=== PATIENT | male | born 2000 | race Caucasian/White ===

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

== ENCOUNTER 2018-03-11 22:15 | Emergency (ER) | payer BC ==
[~2018-03-11] VITALS: Ht 182.9 cm; Wt 71.2 kg
[~2018-03-11 22:15] MED LIST changes: -ALBU18002 INH; +ALBUAER INH; -OXYC-57 PO
[2018-03-11 22:18] VITALS: TEMP 36.6; Ht 182.9 cm; Wt 71.2 kg
[2018-03-11] MEDS ORDERED: ALBUT/IPRATROP 3MG/0.5MG NEB 3 ML VIAL ONE (22:26)
[2018-03-11] MEDS ORDERED: ALBUT/IPRATROP 3MG/0.5MG NEB 3 ML VIAL INH STA (23:23)
[2018-03-11] MEDS ORDERED: DEXAMETHASONE SOD INJ 10 MG/ML VIAL ONE (23:26)
[2018-03-11] MEDS ORDERED: DEXAMETHASONE **PF** INJ 10 MG/ML VIAL IV ONE (23:30)
[2018-03-11 23:51] LABS: BASO % 0.6 %; BASO ABS # 0.07 K/uL (0-0.2); EOS % 8.5 %; EOS ABS # 1.07 K/uL (0-0.5); HEMATOCRIT 45.4 % (42-52); HEMOGLOBIN 16.2 g/dL (14.0-18.0); IG# 0.03 K/uL (0.00-0.02); LYMPH % 17.6 %; LYMPH ABS # 2.22 K/uL (1.2-3.4); MEAN CELL VOLUME 87.3 fL (80-100); MEAN CORPUSCULAR HEMOGLOBIN 31.2 pg (25-34); MEAN CORPUSCULAR HGB CONC 35.7 g/dl (32-36); MEAN PLATELET VOLUME 10.1 fL (7.4-10.4); MONO % 9.9 %; MONO ABS # 1.25 K/uL (0.11-0.59); NEUT % 63.2 %; NEUT ABS # 7.96 K/uL (1.4-6.5); PLATELET COUNT 265 K/uL (130-400); RED CELL DISTRIBUTION WIDTH CV 12.2 % (11.5-14.5); RED CELL DISTRIBUTION WIDTH SD 38.8 fL (36.4-46.3)
[2018-03-12 00:14] LABS: ALBUMIN 4.3 gm/dl (3.4-5.0); CALCIUM 9.5 mg/dl (8.5-10.1); CREATININE 1.15 mg/dl (0.60-1.40); POTASSIUM 4.1 mmol/L (3.5-5.1); TOTAL PROTEIN 7.8 gm/dl (6.4-8.2)
[2018-03-12] MEDS ORDERED: ALBUT/IPRATROP 3MG/0.5MG NEB 3 ML VIAL INH STA (00:23)
[2018-03-12] MEDS ORDERED: SODIUM CHLORIDE 0.9% 1000ML 1,000 ML IV STA (00:23)
[2018-03-12 01:52] VITALS: O2SAT 92
[2018-03-12] MEDS ORDERED: ALBUTEROL HFA 8 GM INHALER INH STA (01:57)
[2018-03-12] MEDS ORDERED: PRED50TA PO (01:58)
[2018-03-12 02:11] VITALS: BP 125/72; PULSE 100; O2SAT 92
--- NOTE | 2018-03-12 05:05 | DIAGNOSTIC IMAGING REPORT ---
CHEST ONE VIEW PORTABLE CLINICAL HISTORY: 17 years-old Male presenting with SOB . TECHNIQUE: Portable upright AP view of the chest was obtained. COMPARISON: 10/03/2016. FINDINGS: Cardiomediastinal silhouette normal. Lungs and pleural spaces clear. Osseous structures normal. Upper abdomen normal. IMPRESSION: 1. No acute cardiopulmonary disease. Electronically signed by: Orlin Corea M.D. 03/12/2018 5:04 AM Dictated Date/Time: 03/12/2018 5:03 AM
--- NOTE | 2018-03-12 05:58 | EMERGENCY ROOM VISIT NOTE ---
History First contact with patient: 23:07 Chief Complaint: SHORTNESS OF BREATH Stated Complaint: CAN'T BREATHE,ASTHMA ATTACK Nursing Triage Summary: HX of asthma, PT also has seasonal allergies. PT states past few days breathing has been getting worse and inhalers not working as well. PT upon arrival RA sat of 88. placed on supplemental oxygen, PT then given duo neb. History of Present Illness The patient is a 17 year old male who presents to the Emergency Room with complaints of cough and wheezing for the past day. Patient's orders were already ordered prior to my evaluation per protocol. Patient states he is out of his inhaler. No recent asthma flare. No recent antibiotics. No recent steroids. He has never been intubated or hospitalized for his asthma. Patient denies chest pain, abdominal pain, fever, chills, productive cough, leg pain or swelling. He is speaking in full sentences. Review of Systems An 10 system review of systems was completed with positives and pertinent negatives listed in the HPI. Past Medical/Surgical History Medical Problems: (1) Asthma Social History Smoking Status: Never Smoker Alcohol Use: none Drug Use: none Marital Status: single Housing Status: lives with family Occupation Status: [employer] student Current/Historical Medications Scheduled Prednisone (Prednisone), 50 MG PO DAILY Scheduled PRN Albuterol Sulfate (Proventil Hfa), 2 PUFFS INH UD PRN for SOB/Wheezing Loratadine (Claritin), 10 MG PO QAM PRN for Allergy Symptoms Physical Exam Vital Signs Date Time Temp Pulse Resp B/P (MAP) Pulse Ox O2 Delivery O2 Flow Rate FiO2 03/12/18 02:11 100 18 125/72 92 03/12/18 01:52 92 Room Air 03/12/18 01:00 113 18 121/72 92 Room Air 03/11/18 23:48 105 18 125/81 95 Nasal Cannula 2.0 03/11/18 23:15 95 Nasal Cannula 2.0 03/11/18 23:14 95 Nasal Cannula 2.0 03/11/18 22:43 112 03/11/18 22:24 94 Nasal Cannula 3.0 03/11/18 22:23 88 Room Air 03/11/18 22:18 36.6 127 24 123/76 91 Room Air Physical Exam PHYSICAL EXAM: Vital Signs: Reviewed Nurse's notes. Oxygen saturation was 91% on room air. GENERAL: Pleasant male speaking full sentences, Alert, oriented and coherent. The patient is able to speak in complete sentences. NECK: Supple , non-tender. CHEST: Symmetrical expansion. no retractions no accessory muscle use. HEART: Mildly tachycardic rate and normal heart sounds, no murmur, gallop or rub. LUNGS: Breath sounds equal but significantly diminished in intensity on both sides. Bilateral wheezes heard but no rales or pleuritic rub. SKIN: The skin was without rashes, erythema, edema, or bruising. There is no tenting of the skin. Capillary reflex less than 2 seconds. HEAD: Normocephalic atraumatic. EARS: External auditory canals clear, tympanic membranes pearly browne without erythema or effusion bilaterally. EYES: Pupils equal round and reactive to light and accommodation. Conjunctivae without injection, sclerae without icterus. Extraocular movements intact. NOSE: Patent, turbinates without inflammation or discharge. No sinus tenderness. MOUTH: Mucous membranes moist. Pharynx without erythema or exudate. Uvula midline. Airway patent. Tongue does not deviate. ABDOMEN: Positive bowel sounds x 4. Normal tympanic percussion. Soft, nontender, without masses or organomegaly. Wilkins sign negative. No guarding or rebound tenderness. MUSCULOSKELETAL: No muscle atrophy, erythema, or edema noted. NEURO: Patient was alert and oriented to person place and time. Normal sensation to light and sharp touch. No focal neurological deficits. Medical Decision & Procedures Laboratory Results 03/11/18 23:05 Red Blood Count 5.20, Mean Corpuscular Volume 87.3, Mean Corpuscular Hemoglobin 31.2, Mean Corpuscular Hemoglobin Concent 35.7, Mean Platelet Volume 10.1, Neutrophils (%) (Auto) 63.2, Lymphocytes (%) (Auto) 17.6, Monocytes (%) (Auto) 9.9, Eosinophils (%) (Auto) 8.5, Basophils (%) (Auto) 0.6, Neutrophils # (Auto) 7.96, Lymphocytes # (Auto) 2.22, Monocytes # (Auto) 1.25, Eosinophils # (Auto) 1.07, Basophils # (Auto) 0.07 03/11/18 23:05 Test 03/11/18 23:05 White Blood Count 12.60 K/uL (4.8-10.8) Red Blood Count 5.20 M/uL (4.7-6.1) Hemoglobin 16.2 g/dL (14.0-18.0) Hematocrit 45.4 % (42-52) Mean Corpuscular Volume 87.3 fL (80-100) Mean Corpuscular Hemoglobin 31.2 pg (25-34) Mean Corpuscular Hemoglobin Concent 35.7 g/dl (32-36) Platelet Count 265 K/uL (130-400) Mean Platelet Volume 10.1 fL (7.4-10.4) Neutrophils (%) (Auto) 63.2 % Lymphocytes (%) (Auto) 17.6 % Monocytes (%) (Auto) 9.9 % Eosinophils (%) (Auto) 8.5 % Basophils (%) (Auto) 0.6 % Neutrophils # (Auto) 7.96 K/uL (1.4-6.5) Lymphocytes # (Auto) 2.22 K/uL (1.2-3.4) Monocytes # (Auto) 1.25 K/uL (0.11-0.59) Eosinophils # (Auto) 1.07 K/uL (0-0.5) Basophils # (Auto) 0.07 K/uL (0-0.2) RDW Standard Deviation 38.8 fL (36.4-46.3) RDW Coefficient of Variation 12.2 % (11.5-14.5) Immature Granulocyte % (Auto) 0.2 % Immature Granulocyte # (Auto) 0.03 K/uL (0.00-0.02) Anion Gap 7.0 mmol/L (3-11) Est Creatinine Clear Calc Drug Dose 104.0 ml/min Estimated GFR () 106.3 Estimated GFR (Non- 91.7 BUN/Creatinine Ratio 15.9 (10-20) Calcium Level 9.5 mg/dl (8.5-10.1) Total Bilirubin 1.4 mg/dl (0.2-1) Aspartate Amino Transf (AST/SGOT) 20 U/L (15-37) Alanine Aminotransferase (ALT/SGPT) 23 U/L (12-78) Alkaline Phosphatase 110 U/L (45-117) Total Protein 7.8 gm/dl (6.4-8.2) Albumin 4.3 gm/dl (3.4-5.0) Globulin 3.5 gm/dl (2.5-4.0) Albumin/Globulin Ratio 1.2 (0.9-2) Medications Administered Medications (Trade) Dose Ordered Sig/Jt Route Start Time Stop Time Status Last Admin Dose Admin Albuterol/ Ipratropium (Duoneb) 3 ml STK-MED ONCE .ROUTE 03/11/18 22:26 03/11/18 22:27 DC 03/11/18 22:30 3 ML Albuterol/ Ipratropium (Duoneb) 3 ml NOW STAT INH 03/11/18 23:23 03/11/18 23:24 DC 03/11/18 23:28 3 ML Dexamethasone Sodium Phosphate (Decadron Inj) 10 mg STK-MED ONCE .ROUTE 03/11/18 23:26 03/11/18 23:27 DC 03/11/18 23:28 10 MG Sodium Chloride 1,000 ml @ 999 mls/hr Q1H1M STAT IV 03/12/18 00:23 03/12/18 01:23 DC 03/12/18 00:29 999 MLS/HR Albuterol/ Ipratropium (Duoneb) 3 ml NOW STAT INH 03/12/18 00:23 03/12/18 00:25 DC 03/12/18 00:29 3 ML Albuterol (Ventolin Hfa Inhaler) 2 puffs ONE STAT INH 03/12/18 01:57 03/12/18 01:58 DC 03/12/18 02:11 2 PUFFS ED Course Prior records/ancillary studies reviewed. Triage Nursing notes reviewed. Additional history obtained from the family. The patient's history was concerning for respiratory difficulties. Differential diagnosis: Etiologies such as infections, reactive airway disease, pneumonia, pneumothorax , COPD, CHF, cardiac ischemia, pulmonary embolism, musculoskeletal, gastrointestinal, as well as others were entertained. Physical examination: As above. ER treatment provided: Nebulizer, steroids, IV fluids On reassessment the patient felt better. Diagnostic interpretation by me: The labs revealed stable H&H. No worrisome electrode abnormality Imaging studies: Chest x-ray with no acute consolidation, pneumothorax or free air per my interpretation This appears to be consistent with asthma exacerbation. Patient felt much better to being medicated as above. He was not hypoxic. He was no longer retracting. Walking pulse ox is 93%. Patient felt better and requested to leave. He was advised to take medications as directed and to follow-up with family care in a few days here in the ER sooner for chest pain, difficulty breathing, worsening signs or symptoms or as needed. By the evaluation outlined above emergent etiologies such as CHF, cardiac ischemia, pulmonary embolism, pneumonia, pneumothorax, musculoskeletal, serious bacterial infections , as well as others were deemed relatively unlikely. The pt informed about the findings as listed above. All questions were answered and pleased with the treatment. Return instructions were outlined and the patient was discharged in stable condition. Outpatient prescription management: Prednisone Referral: The patient was referred back to their primary care physician for follow-up in 2 to 3 days for a recheck of the current condition. Case reviewed with my attending The chart was completed utilizing [employer] Speech voice recognition software. Grammatical errors, random word insertions, pronoun errors, and incomplete sentences are an occassional consequence of this system due to software limitations, ambient noise, and hardware issues. Any formal questions or concerns about the content, text, or information contained within the body of this dictation should be directly addressed to the physician accountant assistant for clarification. Medical Decision As above Medication Reconcilliation Current Medication List: was personally reviewed by me Blood Pressure Screening Patient's blood pressure: Normal blood pressure Impression Primary Impression: Asthma with exacerbation Departure Information Dispostion Home / Self-Care Condition GOOD Prescriptions Prednisone (Prednisone) 50 Mg Tab 50 MG PO DAILY for 4 Days, #4 TAB Prov: Lissette Perdue .CESAR 03/12/18 Referrals No Doctor, Assigned (PCP) Forms HOME CARE DOCUMENTATION FORM, IMPORTANT VISIT INFORMATION Patient Instructions Asthma - [facility], [facility] Additional Instructions Albuterol Inhaler: Take 2 puffs four times daily for five days, then as needed. Prednisone 50mg: Once daily until the prescription is finished. It is best to take this earlier in the day as some patients note occasional difficulty falling asleep when taken in the late evening. Acetaminophen(Tylenol) may be used for fever or pain. Use 1000mg every six hours as needed. Avoid using more than 3000mg in a 24 hour period. (AND/OR) Ibuprofen(Motrin, Advil) may be used for fever or pain. Use 600mg every six hours as needed. Take with food. Avoid using more than 2400mg in a 24 hour period. Do not use 2400mg per day for more than three consecutive days without physician direction. Prolonged inappropriate use can lead to stomach upset or ulcers. Rest and drink plenty of fluids. Avoid smoke/smoking, fumes, dust, or any triggers in the past that may have affected your breathing. Continue current medications. Return to the ER for chest pain, difficulty breathing, fevers, vomiting, worsening of your condition, or as needed. Follow up with your primary physician this week for a recheck of your current condition. Problem Qualifiers Primary Impression: Asthma with exacerbation Asthma severity: moderate Asthma persistence: persistent Qualified Codes: J45.41 - Moderate persistent asthma with (acute) exacerbation
== END 2018-03-12 02:13 | disposition home or self-care (01) ==
LOC: C.EDB 22:17 → C.EDA 03-12 02:13
DX: J45.901 Unspecified asthma with (acute) exacerbation (principal)